=== PATIENT | male | born 1975 | race Caucasian/White ===

== ENCOUNTER 2018-10-07 18:40 | Emergency (ER) | payer OTHER ==
[2018-10-07] MEDS ORDERED: diphenhydrAMINE 50 MG/ML 1 ML VIAL IVP STA (18:44)
[2018-10-07] MEDS ORDERED: methylPREDNISolone SOD SUCCI 125 MG/2 ML VIAL IV STA (18:44)
[2018-10-07] MEDS ORDERED: FAMOTIDINE 20 MG/2 ML VIAL IV STA (18:44)
[2018-10-07] MEDS ORDERED: SODIUM CHLORIDE 0.9% 1,000 ML IV STA (18:44)
[2018-10-07 18:46] VITALS: RESP 18
--- NOTE | 2018-10-07 18:50 | ED ---
General Adult HPI - General Stated complaint: Allergic Reaction Time Seen by Provider: 10/07/18 18:41 Source: patient, EMS, RN notes reviewed, old records reviewed Mode of arrival: EMS Limitations: no limitations - History of Present Illness Initial comments: 42-year-old male patient passed no history of ALLERGIES to bees presents to ED after a bee sting. Patient reports that he previously had no issues with bee stings and stated he was stung often. Patient reports that last year after he was stung by a bee he felt nauseous, and felt as if he had difficulty breathing. Today he was stung by a bee he felt very nauseous, started sweating, had some very mild shortness of breath. Patient reports this occurred approximately one hour ago. Patient symptoms have since Tuesday, currently asymptomatic. Patient denies any facial swelling, feeling of throat closing, rash. Patient reports nausea but did not have any emesis. Patient does not have any current abdominal pain. Systemic: Pt denies fatigue, fever/chills, rash. Pt denies weakness, night sweats, weight loss. Neuro: Pt denies headache, visual disturbances, syncope or pre-syncope. HEENT: Pt denies ocular discharge or irritation, otalgia, rhinorrhea, pharyngitis or notable lymphadenopathy. Cardiopulmonary: Pt denies chest pain, SOB, heart palpitations, dyspnea on exertion. Abdominal/GI: Pt denies abdominal pain, n/v/d. : Pt denies dysuria, burning w/ urination, frequency/urgency. Denies new onset urinary or bowel incontinence. MSK: Pt denies myalgia, loss of strength or function in extremities. Neuro: Pt denies new onset weakness, paresthesias. - Related Data Previous Rx's Medication Instructions Recorded EPINEPHrine [Epipen 2-Nilo] 0.3 mg IM ONCE PRN #1 pack 10/07/18 predniSONE 50 mg PO DAILY #4 tab 10/07/18 Allergies Allergy/AdvReac Type Severity Reaction Status Date / Time bee pollen Allergy Nausea & Verified 10/07/18 18:46 Vomiting Review of Systems ROS Statement: Those systems with pertinent positive or pertinent negative responses have been documented in the HPI. ROS Other: All systems not noted in ROS Statement are negative. Past Medical History Past Medical History: Hypertension History of Any Multi-Drug Resistant Organisms: None Reported Past Surgical History: Orthopedic Surgery Additional Past Surgical History / Comment(s): abdominal surgery- bowel obstruction Past Psychological History: No Psychological Hx Reported Smoking Status: Never smoker Past Alcohol Use History: Daily Past Drug Use History: None Reported General Exam - General Exam Comments Initial Comments: Constitutional: NAD, AOX3, Pt has pleasant affect. HEENT: NC/AT, trachea midline, neck supple, no lymphadenopathy. Posterior phary nx non erythematous, without exudates. External ears appear normal, without discharge. Mucous membranes moist. Eyes PERRLA, EOM intact. There is no scleral icterus. No pallor noted. Cardiopulmonary: RRR, no murmurs, rubs or gallops, no JVD noted. Lungs CTAB in anterior and posterior crowell. No peripheral edema. Abdominal exam: Abdomen soft and non-distended. Abdomen non-tender to palpation in all 4 quadrants. Bowel sounds active in LLQ. No hepatosplenomegaly. No ecchymosis Neuro: CN II-XII grossly intact. No nuchal rigidity. No raccon eyes, no kaplan sign, no hemotympanum. No cervical spinal tenderness. MSK: No posterior calf tenderness bilaterally, homans sign negative bilaterally. Posterior tibialis and radial pulse +2 bilaterally. Sensation intact in upper and lower extremities. Full active ROM in upper and lower extremities, 5/5 stregnth. Derm: No rash noted. Limitations: no limitations Course Vital Signs 10/07/18 18:41 Temperature 97.9 F Pulse Rate 115 H Respiratory 18 Rate Blood Pressure 137/105 O2 Sat by Pulse 97 Oximetry Medical Decision Making - Medical Decision Making 42-year-old male patient presents to ED after a bee sting. Patient reports that he does get have reaction to bee stings, has never had anaphylaxis. Patient's pain symptoms including nausea, mild diaphoresis, transient shortness of breath. Upon presentation to ER patient was asymptomatic. Patient's vital signs stable at discharge. Physical exam did not display acute pathology. Patient administered steroids prednisone and Pepcid and ED. Patient discharged with 4 days of steroids as well as an EpiPen. Return precautions discussed. Case discussed with Dr. Mccray. Disposition Clinical Impression: Allergic reaction Disposition: HOME SELF-CARE Condition: Stable Instructions (If sedation given, give patient instructions): General Allergic Reaction (ED) Additional Instructions: Patient to adhere to previously discussed treatment plan and will take medication(s) as directed. Patient to follow up with PCP in 1-2 days. Patient to return to ED if symptoms do not improve. Take medications as prescribed. Follow up with primary care provider tomorrow. Return to ER if condition worsens. Prescriptions: EPINEPHrine [Epipen 2-Nilo] 0.3 mg IM ONCE PRN #1 pack PRN Reason: Anaphylaxis predniSONE 50 mg PO DAILY #4 tab Is patient prescribed a controlled substance at d/c from ED?: No Referrals: Jere Travis DO [Primary Care Provider] - 1-2 days
[2018-10-07 20:14] VITALS: BP 148/99; PULSE 97; TEMP 97.3
== END 2018-10-07 20:13 | disposition home or self-care (01) ==
LOC: EC 18:40
DX: T63.441A Toxic effect of venom of bees, accidental (unintentional), initial encounter (principal); R11.0 Nausea; R06.02 Shortness of breath; R61 Generalized hyperhidrosis; J30.1 Allergic rhinitis due to pollen
CPT/HCPCS: 99283; 96374; 96375 ×2; J1200; J2930